=== PATIENT | male | born 1945 | race Caucasian/White ===

== ENCOUNTER 2021-10-14 05:30 | Day surgery (SDC) | payer MEDICARE ==
[2021-10-14] MEDS ORDERED: Nozin Nasal Sanitizer NASBOTH SCH (06:11)
[2021-10-14] MEDS ORDERED: Lactated Ringers 1,000 ML IV SCH ×2 (06:19→08:45)
[2021-10-14] MEDS ORDERED: Bupivacaine 0.5% 50 ML MDV ONE (06:38)
[2021-10-14] MEDS ORDERED: Povidone-Iodine 10% Soln 118.25 ML Bottle ONE (06:42)
[2021-10-14] MEDS ORDERED: Midazolam 1 MG/ML 2 ML SDV ONE (07:23)
[2021-10-14] MEDS ORDERED: fentaNYL 100 MCG/2 ML SDV ONE (07:23)
[2021-10-14] MEDS ORDERED: Propofol 200 MG/20 ML SDV ONE (07:23)
[2021-10-14] MEDS: ceFAZolin 2 GM in Premix Bag 1 BAG IV ONE ×2 (07:31→10:40)
[2021-10-14] MEDS ORDERED: Lactated Ringers 1,000 ML ONE (08:20)
[2021-10-14] MEDS ORDERED: Nozin Nasal Sanitizer NASBOTH ONE (08:45)
[2021-10-14] MEDS ORDERED: ceFAZolin 2 GM in Sodium Chloride 0.9% 100 ML IV ONE (09:00)
[2021-10-14] MEDS ORDERED: Bupivacaine 0.5% 30 ML SDV INFILT ONE (09:00)
[2021-10-14] MEDS ORDERED: Magnesium Hydroxide 400 MG/5 ML Susp 30 ML Cup PO PRN (09:16)
[2021-10-14] MEDS ORDERED: Ondansetron 4 MG/2 ML SDV IVPUSH PRN (09:16)
[2021-10-14] MEDS ORDERED: Acetaminophen/oxyCODONE 325-5 MG Tab PO PRN (09:16)
[2021-10-14] MEDS ORDERED: Morphine 2 MG/ML SYRINGE IVPUSH PRN (09:16)
[2021-10-14] MEDS: Ketorolac 30 MG/ML SDV IVPUSH SCH ×2 (10:47→17:31)
[2021-10-14] MEDS: Acetaminophen 325 MG Tab PO SCH ×3 (10:48→23:33)
[2021-10-14] MEDS: Sodium Chloride 0.9% 1,000 ML IV SCH ×2 (10:54→19:41)
[2021-10-14] MEDS: traMADol 50 MG Tab PO PRN ×2 (14:32→21:33)
[2021-10-14] MEDS: ceFAZolin 1 GM in Premix Bag 1 BAG IV SCH (17:31)
[2021-10-14] MEDS: Docusate Sodium 100 MG Cap PO SCH (21:35)
[2021-10-14] MEDS: Nozin Nasal Sanitizer NASBOTH SCH (21:35)
[2021-10-15] MEDS: Ketorolac 30 MG/ML SDV IVPUSH SCH (02:06)
[2021-10-15] MEDS: Acetaminophen 325 MG Tab PO SCH ×2 (04:25→11:11)
[2021-10-15] MEDS: traMADol 50 MG Tab PO PRN ×3 (04:26→13:45)
[2021-10-15] MEDS: ceFAZolin 1 GM in Premix Bag 1 BAG IV SCH (06:48)
[2021-10-15] MEDS: Nozin Nasal Sanitizer NASBOTH SCH (08:30)
[2021-10-15] MEDS: Docusate Sodium 100 MG Cap PO SCH (08:30)
[2021-10-15] MEDS ORDERED: Aspirin 325 MG Tab.EC PO SCH (09:00)
[2021-10-15] MEDS ORDERED: Metoprolol Succinate 25 MG Tab.ER PO SCH (09:00)
[2021-10-15] MEDS ORDERED: atorvaSTATin 20 MG Tab PO SCH (09:00)
[2021-10-15 11:14] VITALS: BP 123/76; PULSE 66
== END 2021-10-15 13:55 | disposition home or self-care (01) ==
LOC: JP.SDS 05:30 → JP.MS 09:16 → JP.SDS 10-15 13:55
PROVIDERS: ATTEND Specialist
DX: M17.12 Unilateral primary osteoarthritis, left knee (principal); I25.10 Atherosclerotic heart disease of native coronary artery without angina pectoris; H91.90 Unspecified hearing loss, unspecified ear; E78.5 Hyperlipidemia, unspecified; Z79.899 Other long term (current) drug therapy; Z79.82 Long term (current) use of aspirin
CPT/HCPCS: 27446; 36415; 73560-26-LT; 73560-LT; 85027; 97110-GP; 97116-GP; 97162-GP; 97530-GP; 97535-GP; A9270-GY; C1713; C1776; J0690; J1885; J2250; J2704; J3010; J3490; J7030; J7120

== ENCOUNTER 2021-12-16 12:43 | Emergency (ER) | payer MEDICARE ==
[2021-12-16 13:00] VITALS: BP 145/85; PULSE 62
== END 2021-12-16 15:30 | disposition home or self-care (01) ==
LOC: JP.ED 12:43
DX: R07.89 Other chest pain (principal); I25.10 Atherosclerotic heart disease of native coronary artery without angina pectoris; E78.00 Pure hypercholesterolemia, unspecified; Z79.82 Long term (current) use of aspirin; Z79.899 Other long term (current) drug therapy
CPT/HCPCS: 36415; 71046; 71046-26; 80048; 84484; 85025; 93005; 93010; 99283; 99285-25

== ENCOUNTER 2022-06-23 23:47 | Emergency (ER) | payer MEDICARE ==
[2022-06-24] MEDS ORDERED: LORazepam 0.5 MG Tab PO SCH
[2022-06-24] MEDS ORDERED: LORazepam 0.5 MG Tab ONE (02:50)
[2022-07-20 13:41] LABS: ESTIMATED GFR 91 mL/min (>60)
== END 2022-06-24 02:45 | disposition home or self-care (01) ==
LOC: JP.ED 23:47
DX: C25.9 Malignant neoplasm of pancreas, unspecified (principal); K29.80 Duodenitis without bleeding
CPT/HCPCS: 36415; 74176; 80053; 81001; 82272; 83690; 85025; 85610; 85730; 99284; A9270

== ENCOUNTER 2024-07-09 12:34 | Emergency (ER) | payer MEDICARE ==
[2024-07-09 13:55] LABS: BASOPHILS ABSOLUTE AUTO 0.03 K/uL (0.00-0.10); BASOPHILS PERCENT AUTO 0.4 % (0.1-1.3); EOSINOPHILS ABSOLUTE AUTO 0.06 K/uL (0.00-0.40); EOSINOPHILS PERCENT AUTO 0.8 % (0.0-5.4); HEMATOCRIT 36.8 % (38.4-49.7); HEMOGLOBIN 12.6 g/dL (12.9-16.9); IMMATURE GRAN PERCENT AUTO 0.3 % (0.0-0.7); LYMPHOCYTES ABSOLUTE AUTO 0.52 K/uL (0.8-3.3); LYMPHOCYTES PERCENT AUTO 6.9 % (11.4-47.7); MEAN CORPUSCULAR HEMOGLOBIN 30.7 pg (31.6-35.5); MEAN CORPUSCULAR HGB CONC 34.2 g/dL (31.6-35.5); MEAN CORPUSCULAR VOLUME 89.5 fL (81.4-99.0); MONOCYTES PERCENT AUTO 9.3 % (3.3-12.6); NEUTROPHILS ABSOLUTE AUTO 6.17 K/uL (1.0-7.6); NEUTROPHILS PERCENT AUTO 82.3 % (40.0-78.1); PLATELET COUNT,PLT 195 K/uL (130-375); RED BLOOD CELL COUNT 4.11 M/uL (4.14-5.76); WHITE BLOOD CELL COUNT,WBC 7.5 K/uL (3.2-11.0)
[2024-07-09 13:56] LABS: APPEARANCE,URINE CLEAR (CLEAR); BILIRUBIN,URINE NEGATIVE (NEGATIVE); COLOR,URINE YELLOW (YELLOW); GLUCOSE,URINE NEGATIVE (NEGATIVE); KETONES,URINE 15 mg/dL (NEGATIVE); LEUKOCYTE ESTERASE,URINE NEGATIVE (NEGATIVE); NITRITE,URINE NEGATIVE (NEGATIVE); OCCULT BLOOD,URINE NEGATIVE (NEGATIVE); PROTEIN,URINE NEGATIVE (NEGATIVE); UROBILINOGEN,URINE 0.2 EU/dL (0.2-1.0)
[2024-07-09 13:57] LABS: IMMATURE GRAN ABSOLUTE AUTO 0.02 K/uL (0.00-0.23)
[2024-07-09] MEDS: Sodium Chloride 0.9% 1,000 ML IV ONE (13:58)
[2024-07-09 14:08] LABS: AMORPHOUS SEDIMENT,URINE NOT SEEN; BACTERIA,URINE RARE; EPITHELIAL CELLS,URINE RARE; MUCUS,URINE MODERATE; RBC,URINE 0-5 (0-5)
[2024-07-09 14:15] LABS: A/G RATIO 1.1 (1.2-2.2); ALANINE AMINOTRANSFERASE,ALT 35 U/L (12-78); ALBUMIN 3.8 g/dL (3.4-5.0); ALKALINE PHOSPHATASE 86 U/L (46-116); ASPARTATE AMNIOTRANSFERASE,AST 32 U/L (15-37); BILIRUBIN TOTAL 1.5 mg/dL (0.2-1.0); BLOOD UREA NITROGEN,BUN 24 mg/dL (7-18); CARBON DIOXIDE,CO2 25 mmol/L (21-32); CHLORIDE,CL 104 mmol/L (100-108); EST CRCL DRUG DOSING (CG) 57.95 mL/min; ESTIMATED GFR 77 mL/min (>60); GLUCOSE RANDOM 107 mg/dL (74-106); POTASSIUM,K 3.9 mmol/L (3.6-5.2); PROTEIN TOTAL,TP 7.3 g/dL (6.4-8.2); SODIUM,NA 138 mmol/L (140-148)
[2024-07-09 14:19] LABS: ANION GAP 12.9 mmol/L (5.0-14.0)
[2024-07-09 14:34] LABS: INFLUENZA A NAA NEGATIVE (NEGATIVE); INFLUENZA B NAA NEGATIVE (NEGATIVE); RESPIRATORY SYNCYTIAL VIR NAA NEGATIVE (NEGATIVE)
[2024-07-09 14:39] LABS: CORONAVIRUS COVID-19 NAA POSITIVE (NEGATIVE)
[2024-07-09 15:32] VITALS: BP 134/77; PULSE 68
== END 2024-07-09 18:05 | disposition home or self-care (01) ==
LOC: JP.ED 12:34
DX: U07.1 COVID-19 (principal); I25.10 Atherosclerotic heart disease of native coronary artery without angina pectoris; E78.00 Pure hypercholesterolemia, unspecified; F17.210 Nicotine dependence, cigarettes, uncomplicated; Z95.5 Presence of coronary angioplasty implant and graft; Z95.1 Presence of aortocoronary bypass graft; Z79.01 Long term (current) use of anticoagulants; Z79.899 Other long term (current) drug therapy
CPT/HCPCS: 0241U; 36415; 71045; 80053; 81001; 85025; 96360; 99283; J7030; 99284